=== PATIENT | female | born 1975 | race Caucasian/White ===

== ENCOUNTER 2018-03-04 15:14 | Emergency (ER) | payer BC ==
--- NOTE | 2018-03-04 15:20 | ER Report ---
History and Physical Time Seen By MD: 15:20 HPI/ROS CHIEF COMPLAINT: Headache and dehydration HISTORY OF PRESENT ILLNESS: This is a 42-year-old female presents to the emergency department for complaints of a headache and dehydration. Patient st ates she had a colonoscopy about a week ago, feels that her headache is result of this or perhaps some stress as well. Patient states that the headache as been increasing over the course of today. Not worst headaches she is ever had. No focal deficits. She also states that she feels that her hydration status is off. She has been drinking and eating okay, the stools are still soft not completely formed yet. Patient denies fevers or chills. No rashes. No chest pain or shortness of breath. No sore throats. REVIEW OF SYSTEMS: Constitutional: No fever, no chills. Eyes: No discharge. ENT: No sore throat. Cardiovascular: No chest pain, no palpitations. Respiratory: No cough, no shortness of breath. Gastrointestinal: As above. Genitourinary: No hematuria. Musculoskeletal: As above. Skin: No rashes. Neurological: As above. Allergies: Coded Allergies: Penicillins (Verified Allergy, Intermediate, 03/04/18) amoxicillin (Verified Allergy, Intermediate, 03/04/18) Home Meds No Active Prescriptions or Reported Meds Past Medical/Surgical History Patient has no significant past medical surgical history. Reviewed Nurses Notes: Yes Constitutional Vital Sign - Last 24 Hours 03/04/18 03/04/18 03/04/18 03/04/18 15:24 15:30 15:50 15:52 Pulse 97 Resp 20 B/P (MAP) 126/79 (95) 124/83 (97) 118/82 (94) 118/82 Pulse Ox 98 O2 Delivery Room Air 03/04/18 03/04/18 16:00 16:30 B/P (MAP) 125/73 (90) 110/76 (87) Physical Exam General Appearance: The patient is alert, has no immediate need for airway protection and no signs of toxicity. Eyes: Pupils equal and round no pallor or injection. ENT, Mouth: Mucous membranes are moist. Respiratory: There are no retractions, lungs are clear to auscultation. Cardiovascular: Regular rate and rhythm. Gastrointestinal: Abdomen is soft and non tender, no masses, bowel sounds normal. Neurological: Alert and oriented 4. Moving all extremities. Following all commands. No focal neuro deficits. Skin: Warm and dry, no rashes. Musculoskeletal: Neck is supple non tender. Extremities are nontender, nonswollen and have full range of motion. DIFFERENTIAL DIAGNOSIS: After history and physical exam differential diagnosis was considered for tension headache, migraine headache, dehydration, upper respiratory infection and stress. Medical Decision Making Data Points Result Diagram: 03/04/18 1549 03/04/18 1549 Laboratory Hematology Test 03/04/18 15:49 Red Blood Count 4.62 M/uL (4.17-5.56) Mean Corpuscular Volume 88.4 fL (80.0-96.0) Mean Corpuscular Hemoglobin 30.3 pg (26.0-33.0) Mean Corpuscular Hemoglobin Concent 34.3 g/dL (32.0-36.0) Red Cell Distribution Width 13.3 % (11.5-14.5) Mean Platelet Volume 8.2 fL (7.2-11.1) Neutrophils (%) (Auto) 71.9 % (39.4-72.5) Lymphocytes (%) (Auto) 20.4 % (17.6-49.6) Monocytes (%) (Auto) 6.2 % (4.1-12.4) Eosinophils (%) (Auto) 0.9 % (0.4-6.7) Basophils (%) (Auto) 0.6 % (0.3-1.4) Nucleated RBC Relative Count (auto) 0.0 /100WBC Neutrophils # (Auto) 5.9 K/uL (2.0-7.4) Lymphocytes # (Auto) 1.7 K/uL (1.3-3.6) Monocytes # (Auto) 0.5 K/uL (0.3-1.0) Eosinophils # (Auto) 0.1 K/uL (0.0-0.5) Basophils # (Auto) 0.0 K/uL (0.0-0.1) Nucleated RBC Absolute Count (auto) 0.00 K/uL Sodium Level 142 mmol/L (137-145) Potassium Level 3.0 mmol/L (3.5-5.0) Chloride Level 103 mmol/L (98-107) Carbon Dioxide Level 25 mmol/L (22-31) Blood Urea Nitrogen 3 mg/dl (7-18) Creatinine 0.60 mg/dl (0.52-1.04) Glomerular Filtration Rate Calc > 60.0 Random Glucose 105 mg/dl (75-110) Calcium Level 9.0 mg/dl (8.4-10.2) Chemistry Test 03/04/18 15:49 White Blood Count 8.1 k/uL (4.5-11.0) Red Blood Count 4.62 M/uL (4.17-5.56) Hemoglobin 14.0 g/dL (12.0-16.0) Hematocrit 40.9 % (34.0-47.0) Mean Corpuscular Volume 88.4 fL (80.0-96.0) Mean Corpuscular Hemoglobin 30.3 pg (26.0-33.0) Mean Corpuscular Hemoglobin Concent 34.3 g/dL (32.0-36.0) Red Cell Distribution Width 13.3 % (11.5-14.5) Platelet Count 307 K/uL (150-450) Mean Platelet Volume 8.2 fL (7.2-11.1) Neutrophils (%) (Auto) 71.9 % (39.4-72.5) Lymphocytes (%) (Auto) 20.4 % (17.6-49.6) Monocytes (%) (Auto) 6.2 % (4.1-12.4) Eosinophils (%) (Auto) 0.9 % (0.4-6.7) Basophils (%) (Auto) 0.6 % (0.3-1.4) Nucleated RBC Relative Count (auto) 0.0 /100WBC Neutrophils # (Auto) 5.9 K/uL (2.0-7.4) Lymphocytes # (Auto) 1.7 K/uL (1.3-3.6) Monocytes # (Auto) 0.5 K/uL (0.3-1.0) Eosinophils # (Auto) 0.1 K/uL (0.0-0.5) Basophils # (Auto) 0.0 K/uL (0.0-0.1) Nucleated RBC Absolute Count (auto) 0.00 K/uL Glomerular Filtration Rate Calc > 60.0 Calcium Level 9.0 mg/dl (8.4-10.2) ED Course/Re-evaluation Clinical Indication for ER IV: Hydration, IV Access ED Course The patient was admitted to a room. A history was were obtained. Differential diagnoses were considered. IV was started. A CBC, CMP were unremarkable for then potassium of 3.0. He was given a 1 L normal saline bolus, states feeling much better after the saline. I did review the laboratory studies with the patient, did tell her she does not appear to be dehydrated. I did encourage her to take multivitamins and increase her fruits and vegetable intake to increase her potassium. The patient had no other questions or concerns at this time and was discharged home. Decision to Disposition Date: Mar 04, 2018 Decision to Disposition Time: 16:37 Depart Departure Latest Vital Signs Vital Signs Date Time Temp Pulse Resp B/P (MAP) Pulse Ox O2 Delivery O2 Flow Rate FiO2 03/04/18 16:30 110/76 (87) 03/04/18 15:52 97 20 98 Room Air Impression: Primary Impression: Headache Condition: Improved Disposition: HOME OR SELF-CARE New Scripts No Active Prescriptions or Reported Meds Patient Instructions: Acute Headache (ED), Tension Headache (ED) Additional Instructions: Be sure to continue drinking plenty of fluids, increase your potassium intake with multivitamins or other fruits and vegetables containing potassium. When he returned home and follow-up with your primary care provider within one week for reevaluation. Get plenty of rest. Return to the emergency department for any other concerns or worsening symptoms. Problem Qualifiers Primary Impression: Headache Headache type: tension-type Headache chronicity pattern: acute headache Intractability: not intractable Qualified Codes: G44.209 - Tension-type headache, unspecified, not intractable LUC [id number] Mar 04, 2018 15:20
[2018-03-04] MEDS ORDERED: NS(*) 0.9% 1000 ML BAG 1,000 ML IV ONE (15:45)
[2018-03-04 16:02] LABS: PLATELET COUNT, AUTOMATED 307 K/uL (150-450)
[2018-03-04 16:30] VITALS: BP 110/76
== END 2018-03-04 16:47 | disposition home or self-care (01) ==
LOC: ER 15:38
DX: G44.209 Tension-type headache, unspecified, not intractable (principal)
CPT/HCPCS: 85025; 96360; 99283; J7030; 82310; 82374; 82435; 82565; 82947; 84132; 84295; 84520